=== PATIENT | male | born 1995 | race Hispanic/Latino ===

== ENCOUNTER 2018-01-07 08:01 | Emergency (ER) | payer MEDICAID, OTHER ==
[2018-01-07 08:10] VITALS: BMI 26.4
[2018-01-07] MEDS ORDERED: Albuterol-Ipratrop 3 mg / 0.5 (3 ml) UD IH STA (08:41)
--- NOTE | 2018-01-07 08:44 | ED PDOC ---
Arrival/HPI - General Chief Complaint: Cough, Cold, Congestion Time Seen by Provider: 01/07/18 08:18 Historian: Patient - History of Present Illness Narrative History of Present Illness (Text): 01/07/18 08:0 A 22 year old male, with no significant past medical history, presents to the emergency department complaining of shortness of breath and dry cough for the past week. Patient reports last night/earlier this morning, cough became productive and became sweaty. Patient became concerned since he is a smoker and decided to come to the ER to be evaluated. Took DayQuil but had no relief of symptoms. Patient denies any fever, chills, syncope, chest pain, dizziness, nausea, vomiting, abdominal pain, or any other complaints at this time. Denies any substance abuse. Past Medical History - Provider Review Nursing Documentation Reviewed: Yes - Infectious Disease Hx of Infectious Diseases: None - Psychiatric Hx Substance Use: No - Anesthesia Hx Anesthesia: No Family/Social History - Physician Review Nursing Documentation Reviewed: Yes Family/Social History: No Known Family HX Smoking Status: Heavy Smoker > 10 Cigarettes Daily Hx Alcohol Use: No Hx Substance Use: No Allergies/Home Meds Allergies/Adverse Reactions: Allergies cat dander Allergy (Verified 01/07/18 08:10) RASH egg Allergy (Verified 01/07/18 08:11) RASH cats Allergy (Uncoded 07/27/15 11:48) RASH Review of Systems - Physician Review All systems were reviewed & negative as marked: Yes - Review of Systems Constitutional: absent: Fevers, Night Sweats Respiratory: SOB, Cough Cardiovascular: absent: Chest Pain, Syncope Gastrointestinal: absent: Abdominal Pain, Diarrhea, Nausea, Vomiting Neurological: absent: Dizziness Physical Exam - Physical Exam Narrative Physical Exam (Text): PE: Gen: NAD, cooperative, well appearing, non-toxic. Head: NCAT. HEENT: EYES: PERRL, EOMI, conjunctiva clear, EARS: TMs clear MOUTH: moist MM, posterior pharynx without erythema or exudate, uvula midline. CV: (+) S1S2, RRR, no M/G/R LUNGS: decreased breath sounds with scattered rhonchi, no rales, No Wheezing, good air movement Abd: Soft, NTTP, no guarding, rebound or rigidity. Neuro: AAO x 3, GCS 15, CN 2-12 intact, motor and sensory grossly intact, 5/5 muscle strength B/L UE's and LE's. ext: no cyanosis or edema Vital Signs Reviewed: Yes Mental Status: Positive for: Alert and Oriented X 3 Medical Decision Making ED Course and Treatment: 01/07/18 08:43 Impression: 22 year old male with shortness of breath and cough. Plan: -- Chest X-ray -- Duoneb -- Reassess and disposition Progress Notes: 01/07/18 10:10 Upon reassessment, patient states he is feeling better. Will follow-up with PMD. 01/07/2018 10:16 Chest X-ray IMPRESSION: No active disease. Dictator: Hector Huynh MD - Scribe Statement The provider has reviewed the documentation as recorded by the Tiagoibdebbie Garibay Provider Scribe Attestation: All medical record entries made by the Scribe were at my direction and personally dictated by me. I have reviewed the chart and agree that the record accurately reflects my personal performance of the history, physical exam, medical decision making, and the department course for this patient. I have also personally directed, reviewed, and agree with the discharge instructions and disposition. Disposition/Present on Arrival - Present on Arrival Any Indicators Present on Arrival: No History of DVT/PE: No History of Uncontrolled Diabetes: No Urinary Catheter: No History of Decub. Ulcer: No History Surgical Site Infection Following: None - Disposition Have Diagnosis and Disposition been Completed?: Yes Diagnosis: Bronchitis Disposition: HOME/ ROUTINE Disposition Time: 10:13 Patient Plan: Discharge Patient Problems: Current Active Problems Problem Status Onset Bronchitis Acute Condition: IMPROVED Discharge Instructions (ExitCare): Acute Bronchitis Additional Instructions: MISAEL SOLIMAN, thank you for letting us take care of you today. Your provider was Dyan Dykes MD and you were treated for shortness of breath/ chest pain/ couging. The emergency medical care you received today was directed at your acute symptoms. If you were prescribed any medication, please fill it and take as directed. It may take several days for your symptoms to resolve. Return to the Emergency Department if your symptoms worsen, do not improve, or if you have any other problems. Please contact your doctor or call one of the physicians/clinics you have been referred to that are listed on the Patient Visit Information form that is included in your discharge packet. Bring any paperwork you were given at discharge with you along with any medications you are taking to your follow up visit. Our treatment cannot replace ongoing medical care by a primary care provider outside of the emergency department. Thank you for allowing the [facility] team to be part of your care today. If you had an X-Ray or CT scan: A Radiologist will review the ED reading if any change in treatment is needed we will contact you. If you had a blood, urine, or wound culture: It will take several days for the results, if any change in treatment is needed we will contact you. If you had an STI test: It will take 48 hours for the results. Please call after 1 week if you have not heard back. Prescriptions: Albuterol HFA [Ventolin HFA 90 mcg/actuation (8 g)] 2 puff IH [id number] PRN #1 unit PRN Reason: Shortness Of Breath Referrals: [facility] [Outside] - Follow up with primary [facility] [place]] - Follow up with primary Forms: [employer] (Martiniquais)
[2018-01-07 08:49] VITALS: RESP 16
--- NOTE | 2018-01-07 10:20 | RAD ---
Date of service: 01/07/2018 HISTORY: cough/sob COMPARISON: 11/19/2011 TECHNIQUE: Chest PA and lateral FINDINGS: LUNGS: No active pulmonary disease. PLEURA: No significant pleural effusion identified. No pneumothorax apparent. CARDIOVASCULAR: No aortic atherosclerotic calcification present. Normal cardiac size. No pulmonary vascular congestion. OSSEOUS STRUCTURES: No significant abnormalities. VISUALIZED UPPER ABDOMEN: Normal. OTHER FINDINGS: None. IMPRESSION: No active disease.
[2018-01-07 10:38] VITALS: BP 136/68; PULSE 70; O2SAT 97
[2018-01-07 10:49] VITALS: TEMP 98
== END 2018-01-07 10:48 | disposition home or self-care (01) ==
LOC: ED 08:01
DX: J40 Bronchitis, not specified as acute or chronic (principal)

== ENCOUNTER 2018-06-12 19:32 | Emergency (ER) | payer OTHER ==
[2018-06-12 20:05] VITALS: BMI 25.7
[2018-06-12 20:07] VITALS: RESP 18
--- NOTE | 2018-06-12 20:42 | ED PDOC ---
Arrival/HPI - General Historian: Patient - History of Present Illness Narrative History of Present Illness (Text): 06/12/18 20:39 Pt is a 23 yo male with no significant PMH who presents to the ED complain of a finger laceration who accidentally cut his left thumb while trying to open a wine bottle with a knife. Pt states he slipped and cut his thumb. Pt denies chest pain, shortness of breath, excessive blood loss. 06/12/18 22:07 Pt seen, examined, assessment and plan discussed with Dr Brooke Hoffman PGY1 Time/Duration: Prior to Arrival Symptom Course: Unchanged Quality: Stabbing Severity Level: Moderate <Christopher Hoffman - Last Filed: 06/13/18 05:21> <Esme Keating - Last Filed: 06/13/18 22:58> - General Chief Complaint: Abnormal Skin Integrity Time Seen by Provider: 06/12/18 20:25 Past Medical History - Infectious Disease Hx of Infectious Diseases: None - Psychiatric Hx Substance Use: No - Surgical History Other/Comment: dental sx - Anesthesia Hx Anesthesia: No <Christopher Hoffman - Last Filed: 06/13/18 05:21> Family/Social History Family/Social History: Unknown Family HX Smoking Status: Heavy Smoker > 10 Cigarettes Daily Hx Alcohol Use: Yes Frequency of alcohol use: Socially Hx Substance Use: No <Christopher Hoffman - Last Filed: 06/13/18 05:21> Allergies/Home Meds <Christopher Hoffman - Last Filed: 06/13/18 05:21> <Esme Keating - Last Filed: 06/13/18 22:58> Allergies/Adverse Reactions: Allergies cat dander Allergy (Verified 06/12/18 20:05) RASH egg Allergy (Verified 06/12/18 20:05) RASH cats Allergy (Uncoded 06/12/18 20:05) RASH Home Medications: Home Meds Medication Instructions Recorded Confirmed No Known Home Med 06/12/18 06/12/18 Physical Exam Vital Signs Temp Pulse Resp BP Pulse Ox 06/12/18 20:06 97.9 F 79 18 142/88 96 Temperature: Afebrile Blood Pressure: Normal Pulse: Regular Respiratory Rate: Normal Appearance: Positive for: Well-Appearing Mental Status: Positive for: Alert and Oriented X 3 - Systems Exam Head: Present: Atraumatic, Normocephalic Pupils: Present: PERRL Extroacular Muscles: Present: EOMI Conjunctiva: Present: Normal Mouth: Present: Moist Mucous Membranes Abdomen: No: Distention Upper Extremity: Present: Normal ROM, Other (laceration to the left thumb, 2cm, medial aspect) Lower Extremity: Present: Normal Inspection Skin: Present: Warm, Dry, Laceration Psychiatric: Present: Alert, Oriented x 3 <Christopher Hoffman - Last Filed: 06/13/18 05:21> Vital Signs Temp Pulse Resp BP Pulse Ox 06/12/18 22:15 98 F 75 18 142/76 100 06/12/18 20:06 97.9 F 79 18 142/88 96 <Esme Keating - Last Filed: 06/13/18 22:58> Medical Decision Making ED Course and Treatment: 06/12/18 20:46 plan to dermabond pt finger <Christopher Hoffman - Last Filed: 06/13/18 05:21> ED Course and Treatment: In agreement with resident note, which includes further HPI details. Patient was seen and evaluated with resident, came up with plan and treatment together. Laceration repaired by me, please see (separate) procedure note. - Medication Orders Current Medication Orders: Discontinued Medications Gelatin (Gelfoam Size 12-7) 1 spg MM STAT STA Stop: 06/12/18 20:59 <Esme Keating Roxanne - Last Filed: 06/13/18 22:58> Disposition/Present on Arrival - Present on Arrival Any Indicators Present on Arrival: No History of DVT/PE: No History of Uncontrolled Diabetes: No Urinary Catheter: No History of Decub. Ulcer: No History Surgical Site Infection Following: None - Disposition Have Diagnosis and Disposition been Completed?: Yes Disposition Time: 22:09 <Christopher Hoffman - Last Filed: 06/13/18 05:21> <Esme Keating - Last Filed: 06/13/18 22:58> - Disposition Diagnosis: Thumb laceration Disposition: HOME/ ROUTINE Condition: GOOD Discharge Instructions (ExitCare): Laceration Repair With Stitches (DC) Additional Instructions: MISAEL SOLIMAN, thank you for letting us take care of you today. Your provider was Esme Keating MD and you were treated for CUT FINGER. The emergency medical care you received today was directed at your acute symptoms. If you were prescribed any medication, please fill it and take as directed. It may take several days for your symptoms to resolve. Return to the Emergency Department if your symptoms worsen, do not improve, or if you have any other problems. Please contact your doctor or call one of the physicians/clinics you have been referred to that are listed on the Patient Visit Information form that is included in your discharge packet. Bring any paperwork you were given at discharge with you along with any medications you are taking to your follow up visit. Our treatment cannot replace ongoing medical care by a primary care provider outside of the emergency department. Thank you for allowing the [facility] team to be part of your care today. Return in 5 DAYS for suture removal. Return sooner for any new or concerning symptoms: redness, swelling, pus, fever. Forms: [employer] (H[place]er), WORK NOTE
[2018-06-12] MEDS ORDERED: Absorbable Gelatin Sponge Size 12-7 MM STA (20:58)
[2018-06-12] MEDS ORDERED: Absorbable Gelatin Sponge Size 12-7 ONE (21:02)
[2018-06-12] MEDS ORDERED: Lidocaine 1% Inj (20ml) ONE (21:35)
--- NOTE | 2018-06-12 22:05 | PCM.PROC ---
<Christopher Hoffman - Last Filed: 06/12/18 22:06> Procedures Attestation:: I certify that I have explained the specified Operation(s) or Procedure(s), risks, benefits and reasonable alternatives to the Patient and/or other person responsible. The opportunity was given to ask questions and all questions answered - Laceration lidocaine 1% simple, single layer flap left hand 5-0 other Site: hand Side (if applicable): left Size (cm): 2 Description: flap Depth: simple, single layer Anesthesia used: lidocaine 1% Anesthesia technique: local infiltration, nerve block Amount (mLs): 8 Pre-repair: irrigated extensively Skin layer closed with: other (prolene) Size: 5-0 Number of sutures: 6 Technique: simple, interrupted <Esme Keating - Last Filed: 06/13/18 05:10> Procedures Attestation:: I certify that I have explained the specified Operation(s) or Procedure(s), risks, benefits and reasonable alternatives to the Patient and/or other person responsible. The opportunity was given to ask questions and all questions answered - Laceration lidocaine 1% simple, single layer flap left hand 5-0 other Site: hand (1st digit)
[2018-06-12 22:16] VITALS: BP 142/76; PULSE 75; TEMP 98; O2SAT 100
== END 2018-06-12 22:16 | disposition home or self-care (01) ==
LOC: ED 19:32
DX: S61.012A Laceration without foreign body of left thumb without damage to nail, initial encounter (principal); W26.0XXA Contact with knife, initial encounter